=== PATIENT | male | born 1955 | race Caucasian/White ===

== ENCOUNTER → 2021-10-08 | Day surgery (SDC) | payer MEDICARE ==
[~2021-10-08] VITALS: Ht 190.5 cm; Wt 96.6 kg
[~2021-10-08] MED LIST: CYMBALTA30 MG PO
[2021-10-08 07:02] VITALS: BP 145/94
[2021-10-08 08:12] VITALS: BP 135/93
[2021-10-08 08:27] VITALS: BP 127/94
[2021-10-08 08:41] VITALS: BP 121/91
== END | disposition home or self-care (01) ==
LOC: SDC 10-04 10:15
PROVIDERS: ATTEND Surgery
DX: Z12.11 Encounter for screening for malignant neoplasm of colon (principal); D12.8 Benign neoplasm of rectum; F17.210 Nicotine dependence, cigarettes, uncomplicated; F41.9 Anxiety disorder, unspecified; Z79.899 Other long term (current) drug therapy